=== PATIENT | female | born 1945 | race Caucasian/White ===

== ENCOUNTER → 2023-03-17 | Outpatient (CLI) | payer MEDICARE, OTHER, SELFPAY ==
--- NOTE | 2023-03-17 13:00 | TOBX_PTH ---
PATIENT: BABAK CAMERON LOC: [facility] U#:[id number] AGE/SX: 77/F ROOM: RE03/17/[address]: ELIE LOUIS MD : 1945 BED: DIS: 03/17/2023 SPEC #: [id number] RECD: 03/17/23 15:03 STATUS: ANABELLA REBhupendra #: [id number] MARIA: 03/17/23 13:[address]: ELIE LOUIS DEPT: SURGICAL PATHOLOGY RECD BY: Jacquie Delacruz ENTERED: 03/18/23 10:16 SP TYPE: TONGUE BX OTHR DR: Cyndie Primary Care Phys Tissues: Tongue, NOS Procedures: Special Stain Group I Surgery Specimen Level IV GMS Stain (control) HEADER OPERATION: Excisional biopsy of left lateral tongue lesion PRE-OP DIAGNOSIS: Left lateral tongue ?white? spot adjacent metal crown noted TISSUE SUBMITTED: Left lateral tongue MICROSCOPIC DIAGNOSIS Left lateral tongue lesion, biopsy: Mild chronic inflammation. Negative for fungal organisms. See comment. AM:lauren 03/22/2023 COMMENT GMS stain with matched control was used in the evaluation of this case. An epithelial neoplasm is not identified. Clinical correlation is suggested. MICROSCOPIC DESCRIPTION Slides are reviewed. GROSS DESCRIPTION Received in fixative is one container labeled with the patient's name and designated tongue. The specimen consists of two pieces of zhang mucosal tissue measuring 0.6 x 0.2 x 0.1 cm and 0.2 x 0.1 x 0.1 cm. The entire specimen is submitted in one cassette. / SJ:lauren 03/18/2023 TC:3 CPT: 45861, 72324
== END | disposition home or self-care (01) ==
PROVIDERS: Referring Provider Dentist Oral and Maxillofacial Surgery; Visit Provider Dentist Oral and Maxillofacial Surgery
DX: K14.9 Disease of tongue, unspecified (principal)
CPT/HCPCS: 88305; 88312

== ENCOUNTER → 2025-04-22 | Outpatient (CLI) | payer MEDICARE, OTHER, SELFPAY ==
--- NOTE | 2025-04-22 13:59 | VDLE_ITS ---
Reason For Study Reason For Study: BLE Pain RIGHT LEFT CFV is compressible, spontaneous, phasic, competent CFV is compressible, spontaneous, phasic, competent, and demonstrates normal augmentation. and demonstrates normal augmentation. FV is compressible, spontaneous, phasic, competent FV is compressible, spontaneous, phasic, competent and demonstrates normal augmentation. and demonstrates normal augmentation. POP V is compressible, spontaneous, phasic, competent POP V is compressible, spontaneous, phasic, competent and demonstrates normal augmentation. and demonstrates normal augmentation. T/P Trunk is compressible. T/P Trunk is compressible. PTV is compressible. PTV is compressible. RT PerV is compressible. LT PerV is compressible. SFJ is INCOMPETENT and measures 0.64 cm. SFJ is INCOMPETENT and measures 0.48 cm. GSV proximal thigh measures 0.52 x 0.44 cm. GSV proximal thigh measures 0.50 x 0.54 cm. GSV at knee measures 0.37 x 0.41 cm. GSV at knee measures 0.45 x 0.46 cm. GSV above knee is INCOMPETENT for greater than 0.5 GSV above knee is competent. seconds. GSV below knee is INCOMPETENT for greater than 0.5 GSV below knee is competent. seconds. SSV mid calf is competent and measures 0.19 x 0.19 SSV mid calf is competent and measures 0.34 x 0.32 cm. cm. Procedure ASV proximal calf is INCOMPETENT for greater than 0.5 Exam performed in department. seconds and measures 0.44 x 0.42 cm. This is a venous duplex using B-mode, color flow and spectral Doppler. The exam was diagnostic. VL/Venous Duplex US - Greg Extrem Interpretation Summary Deep veins of the lower extremities are bilaterally patent and compressible seg mentally. There is no evidence of deep vein thrombosis on either side. Valvular competence appears intact within the p roximal deep venous systems bilaterally. The great saphenous veins appear bilaterally patent and compressible segmentall y. Sapheno-femoral junctions are bilaterally incompetent . The right great saphenous vein appears incompetent ab ove the knee. The right great saphenous vein appears competent below the knee. The left great saphenous vein appears co mpetent above the knee. The left great saphenous vein appears incompetent below the knee. Small saphenous veins are pa tent and competent bilaterally. The accessory saphenous vein in the left proximal calf is incompetent. Ordering Physician: Boom Duffy Referring Physician: Jeane Zurita Performed By: Wade Moore RVT
== END | disposition home or self-care (01) ==
LOC: CVS 13:50
PROVIDERS: PCP Internal Medicine; Referring Provider Podiatrist Foot & Ankle Surgery; Visit Provider Podiatrist Foot & Ankle Surgery
DX: I73.89 Other specified peripheral vascular diseases (principal); M79.604 Pain in right leg; M79.605 Pain in left leg
CPT/HCPCS: 93970

== ENCOUNTER → 2025-05-07 | Outpatient (CLI) | payer MEDICARE, OTHER, SELFPAY ==
--- NOTE | 2025-05-07 13:49 | ART_ITS ---
Reason For Study Reason For Study: BILATERAL LEG PAIN Left Segmental Pressures Left brachial= 141mmHg. Left posterior tibial artery = 185mmHg. Left dorsalis pedis artery = 155mmHg. Left digit = 166 mmHg. The left posterior tibial artery waveforms are triphasic. The left dorsalis pedis waveforms are triphasic. Right Segmental Pressures Right brachial= 139mmHg. Right posterior tibial artery = 155mmHg. Right dorsalis pedis artery = 153mmHg. Right digit = 167 mmHg. The right posterior tibial artery waveforms are triphasic. The right dorsalis pedis waveforms are triphasic. Indices The right resting ankle brachial index is 1.10. The right ankle brachial index by the posterior tibial artery is 1.10. The right ankle brachial index by the dorsalis pedis is 1.09. The right digital- brachial index is 1.18. The left resting ankle brachial index is 1.31. The left ankle brachial index by the posterior tibial artery is 1.31. The left ankle brachial index by the dorsalis pedis is 1.10. The left digital-brachial index is 1.18. VL/Lower Ext Art Exam w/o Exercis Interpretation Summary Right OSCAR 1.1, normal. TBI and Doppler/PVR waveforms of the right leg normal at rest. Left OSCAR 1.31, normal. TBI and Doppler/PVR waveforms of the left leg normal at rest. Ordering Physician: Boom Duffy Referring Physician: Jeane Zurita Performed By: Jhoana Alarcon RVT, RDCS
== END | disposition home or self-care (01) ==
LOC: CVS 13:46
PROVIDERS: PCP Internal Medicine; Referring Provider Podiatrist Foot & Ankle Surgery; Visit Provider Podiatrist Foot & Ankle Surgery
DX: I73.89 Other specified peripheral vascular diseases (principal); M79.604 Pain in right leg; M79.605 Pain in left leg
CPT/HCPCS: 93923

== ENCOUNTER 2025-08-02 06:44 | Day surgery (SDC) | payer MEDICARE, OTHER, SELFPAY ==
--- NOTE | 2025-07-19 15:21 | PAT.ANE_ITS ---
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 When Was Last Pacemaker Check QUESTION #4 FULL TEXT: You/Your Family Experience fever (hyperthermia) with Anesthesia Last Oral Intake Last Oral intake: Last Oral Intake NPO since Meds taken in AM with sips of water? Meds patient instructed to take am of surgery PONV PONV - agriculture sales account manager: PONV - agriculture sales account manager Female Yes 07/19/25 09:07 HX of Motion Sickness No 07/19/25 09:07 HX of N/V After Surgery No 07/19/25 09:07 Non-Smoker Yes 07/19/25 09:07 Duration of Surgery greater Yes 07/19/25 09:07 than 60 minutes Number of Risk Factors 3 07/19/25 09:07 PONV Score Moderate Risk 07/19/25 09:07 Respiratory Assessment Respiratory Assessment - agriculture sales account manager: Respiratory Tract Infection Hx - agriculture sales account manager Hx Respiratory Tract Infection No 07/19/25 09:07 STOP Sleep Apnea STOP Sleep Apnea - agriculture sales account manager: STOP Sleep Apnea - agriculture sales account manager Hx Hypertension Yes 07/19/25 09:07 Hx Sleep Apnea Yes 07/19/25 09:07 CPAP Yes 07/19/25 09:07 BIPAP No 07/19/25 09:07 Do you snore loudly (louder than talking or can be heard Do you often feel tired/ fatigued/ sleepy during daytime? Has anyone observed you stop breathing during sleep? STOP Results Positive 07/19/25 09:07 QUESTION #5 FULL TEXT : Do you snore loudly (louder than talking or can be heard through closed doors)? 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 Specify any problems Hx of Preganancy in last 3 No 07/19/25 09:07 Months Nurse Filling Out Transfusion JZOLLINGE 07/19/25 09:07 & Questions: Date: 07/19/25 07/19/25 09:07 Time: 09:08 07/19/25 09:07 Patient unable to answer at this time (ie. confused, unrespo /Reproduction History /Reproductive History - agriculture sales account manager: /Reproductive Hx- agriculture sales account manager Hx Now No 07/19/25 09:07 Gestational Age (in weeks): EDC: Hx Hx Para Hx Section SAB No 07/19/25 09:07 [facility] Medical History (Updated 07/19/25 @ 09:26 by Zita Saha) History of echocardiogram Wears hearing aid Wears partial dentures Wears dentures Depression Insulin dependent diabetes mellitus Gout Arthritis Chronic kidney disease, stage 3 Bladder disease Injury of back Dietary restriction Gastric reflux Heartburn Non-smoker CPAP (continuous positive airway pressure) dependence Sleep apnea History of stress test Cardiology follow-up encounter Home Medications ?Medication ?Instructions ?Recorded ?Last Taken ?Type acetaminophen 325 mg tablet (Pain 650 mg PO Q6H Unknown History Relief (acetaminophen)) aspirin 81 mg capsule 81 mg PO DAILY 07/19/25 Unkn own History bupropion HCl 150 mg tablet,12 hr 150 mg PO DAILY 06/25 04/17 Unknown History sustained-release esomeprazole magnesium 40 mg 40 mg PO DAILY 07/19/25 U nknown History capsule,delayed release fluticasone propionate 50 2 spray intranasal DAILY Unknown History mcg/actuation nasal spray,suspension furosemide 40 mg tablet 40 mg PO .qd 07/19/25 Unknow n History hydrochlorothiazide 25 mg tablet 25 mg PO DAILY Unknown History insulin aspart U-100 100 unit/mL 15 - 20 unit subcut T ID 07/19/25 Unknown History (3 mL) subcutaneous pen (Novolog FlexPen U-100 Insulin aspart) mirabegron 50 mg tablet,extended 50 mg PO QHS 07/19/25 Unknown History release 24 hr (Myrbetriq) telmisartan 80 mg tablet 80 mg PO DAILY 07/19/25 Unkn own History Allergy/AdvReac Type Severity Reaction Status Date / Time ciprofloxacin AdvReac Mild Diarrhea Verified 07/19/25 14:44 metformin AdvReac Mild Diarrhea Verified 07/19/25 14:44 pioglitazone AdvReac Mild Diarrhea Verified 07/19/25 14:44 [id number] Reductase AdvReac Mild myalgia Verified 07/19/25 14:44 Inhibitor Surgical History (Updated 07/19/25 @ 09:26 by Zita Saha) History of coronary artery stent placement History of cardiac catheterization Hx of carpal tunnel repair Hx of colonoscopy Social History Smoking Status: Never smoker Audit: Pertinent Findings Pertinent Findings EKG Perinent findings: EKG normal sinus rhythm Stress test pertinent findings: Normal pharmacologic stress SPECT myocardial perfusion imaging study. Normal pharmacologic electrocardiographic portion of stress test. No chest discomfort. No evidence of ischemia by EKG criteria. Overall left ventricular systolic function was normal without regional wall motion abnormalities. Consult pertinent findings: Office visit 07/19/2025. Cardiac risk assessment based on the most recent clinical assessment does not exhibit active signs or objective evidence of acute coronary syndrome, decompensated heart failure, or significant arrhythmia severe valvular disease. Recommendation Anesthesia Recommendation Anesthesia recommendation: OPTIMIZED for anesthesia
[2025-08-02] VITALS (13 sets, daily range): BP systolic 118–149; BP diastolic 68–96; PULSE 84–93; RESP 16–18; TEMP 36.3–36.6; O2SAT 81–98; BMI 30.4
[2025-08-02] MEDS: Lactated Ringers 1,000 ML 15 ML IV (07:19)
--- NOTE | 2025-08-02 07:26 | OP.PCM_ITS ---
Operative Report (Standard) Operative Information Date of Procedure: 08/02/25 Pre-Operative Diagnosis: 1. Pain, right foot 2. Hallux valgus, right foot 3. Hammertoe, second digit, right foot 4. Primary osteoarthritis, right foot 5. Diabetes type 2 peripheral neuropathy Post-Operative Diagnosis: Same as preoperative diagnosis Surgery/Procedure Performed: Procedure #1: Bone marrow aspirate concentrate harvest, right foot Procedure #2: Amboy of calcaneal bone graft, right foot Procedure #3: First tarsometatarsal joint arthrodesis, right foot Procedure #4: First metatarsal phalangeal joint arthrodesis, right foot Procedure #5: Second digit proximal interphalangeal joint arthrodesis, second digit, right foot city library director: Yes Speech Therapy Director: BRITTANY Rosales Tasks completed by list of first job ideas: Closing, Implanting device and Retracting Additional clinical data assistant?: Yes Additional Clamshell Engineer #2: Amado Snyder Tasks completed by clinical data assistant #2: Closing Additional clinical data assistant?: No Type of Anesthesia: Block,Regional and Spinal RN Documented Start/Stop Times: Operation Date: 08/02/25 08:45 Case Time Into Pre-Op 08/02/25 06:50 Anesthesia Start 08/02/25 09:14 Into Room 08/02/25 09:14 Out of Pre-Op 08/02/25 09:14 Procedure Start 08/02/25 09:30 Procedure End 08/02/25 13:14 Anesthesia End 08/02/25 13:19 Out of Room 08/02/25 13:19 Into Recovery 08/02/25 13:22 Into Phase II Recovery 08/02/25 14:45 Out of Recovery 08/02/25 14:45 Out of Phase II 08/02/25 15:37 Procedure Start Time: 09:30 Procedure Stop Time: 13:14 Select all DRAINS/GRAFTS/IMPLANTS that apply: Implanted device Implanted device details: [employer], Lapiplasty, first metatarsophalangeal joint plate/speed plate Special Medications: Per anesthesia Estimated Blood Loss: 75 mL Fluids Replaced: For anesthesia Specimen collected: Yes Description of specimen(s) removed: Gout crystals from the first metatarsophalangeal joint space, right foot Description of surgery: Indications For Operation: Mrs. Fox is a 80-year-old diabetic female who was admitted to [facility] for right foot surgery due to hallux valgus deformity and pain to the right foot. Patient is a well-controlled diabetic and has been seen in my office for conservative treatment for the past 6 months. We have exhausted all conservative treatment consisting of sugar modification, nonsteroid anti-inflammatories, taping and offloading pads due to the persistence of pain especially to the medial eminence and hypermobility of the right foot hallux valgus deformity we discussed surgical intervention with double fusion of the first tarsometatarsal joint and first metatarsophalangeal joint arthrodesis to correct her severe bunion deformity. All risk and benefits were discussed with the patient great detail. Patient showed understanding to everything that was discussed with her. Chart review consent signed. Due to deformity of the right foot it was deemed necessary at this time to take the patient for the above procedure to help reduce her deformity and decrease her constant pain. The nature of the problem, anticipated procedures, postop recovery/convalences and risk/complications include but not limited to infection, wound healing complications, digital amputation, hypertrophic scarring, numbness, tingling, chronic pain, CRPS, over and under correction, recurrence of deformity, DVT and or PE and the need for further surgery have been discussed in great detail with the patient. All questions have been answered to the patient's satisfaction. There are no guarantees given as to the outcome of the procedure. Description of Procedure: Under mild sedation, the patient was brought into the operating room and placed on the operating table in supine position. Once the patient was under spinal anesthesia with monitored anesthesia care, the right lower extremity was blocked in PACU by anesthesia after the procedure via popliteal and adductor block. Please see anesthesia note for further detail. Next, a well-padded thigh tourniquet was applied to the right lower extremity. Next, the right lower extremity was prepped and draped in normal aseptic manner. Next, a timeout was then undertaken verifying the correct patient, extremity, visibility of preoperative markings, availability of the equipment. Procedure #1: Bone marrow aspirate concentrate harvest, right foot (CPT code: 93041) Next, attention was directed to the lateral aspect of the calcaneus. Using a Jamshidi needle and mallet the Jamshidi needle was advanced through the lateral wall of the calcaneus and 60 cc of bone marrow aspirate concentrate harvest was removed and passed the back table to be spun off to be used later in the case. Next, attention was directed to the right lower extremity. Using a 4 inch Esmarch, right lower extremity was exsanguinated and elevated to 60 degrees for 1 minute. Procedure #2: Amboy of calcaneal bone graft, right foot (CPT code: 80631) Next, attention was directed to the lateral aspect of the right calcaneus. Using a #15 blade, a full-thickness incision, approximately 1 cm, was made down to bone without incident. Continued blunt dissection was carried out with curved hemostats. Using the [employer] 7 mm bone graft harvester, calcaneal bone harvest less than than 5 cc was made, then removed from the calcaneus and passed the back table to be used later in the case, for the first tarsometatarsal joint and first metatarsophalangeal joint arthrodesis p rocedures. The incision was flushed with copious leonard of normal saline. The skin was reapproximated and closed using 3-0 nylon in simple interrupted suture technique. Procedure #3: First tarsometatarsal joint arthrodesis, right foot (CPT code: 49587) Next, attention was directed to the dorsal aspect of the right foot. Using fluoroscopy, the first tarsometatarsal joint was visualized. A longitudinal 3.5 cm incision with a #15 blade was made just medial to the extensor hallucis longus tendon. The incision was made down to the periosteum with care to retract the tendon laterally. The periosteum was reflected. The first tarsometatarsal joint was exposed and identified. Careful dissection was carried down to the level of the first tarsometatarsal joint as well as in the lateral space between the first and second metatarsal. The ligaments were then released at the tarsometatarsal joint with planing with sagittal saw and saw blade. After planing was performed, the plantar ligaments were released with the Tritome. Next, the all-in-one positioner was inserted, positioning the first metatarsal into corrected position. Positioning of the cuts were confirmed with large C-arm fluoroscopy. Cuts were then made with the all-in-one device using the sagittal saw and provided blade by [employer]. The compression/distractor was applied. The joint was distracted and the cuts along the base of the first metatarsal and first cuneiform removed. Continued joint prep followed after using a combination of osteotome and curette. The joint was flushed with copious leonard normal saline. Next, the joint was prepped using a fenestration with a 2- 0 drill bit along the first cuneiform and base of the first metatarsal. Next, the Amboy of calcaneal bone graft autograft was then packed in the first tarsometatarsal joint. At this point, the positioner was reapplied, compression/distractor was closed down and the fulcrum was then inserted on the lateral aspect of the base of the first metatarsal. Dorsiflexion of the hallux was then performed pushing the metatarsal and tarsometatarsal joint into place. Pinning with 2 smooth K wires in crossing fashion. Next, orthogonal plating was applied using (x2) 13 mm spleed plates by [employer]. Procedure #4: First metatarsal phalangeal joint arthrodesis, right foot (CPT code: 59380) Next, attention was directed to the dorsal aspect of the first metatarsal phalangeal joint, using a sterile skin marker the incision was marked at the level of the first metatarsal phalangeal joint distally and proximally. Using a #15 blade a full-thickness incision down to subcutaneous tissue was performed and continued blunt dissection carried down to the level of the tendon and bone. The tendon was retracted laterally using retractors and continue sharp dissection was carried down to the level of the first metatarsal phalangeal joint as well as exposing the joint in its entirety. At this time there showed evidence of approximately 90 to 95% of articular cartilage loss with osteophytic changes appreciated to the head of the first metatarsal as well as the base of the proximal phalanx. Next, the joint was released using a large McGlamery elevator. Next, using the 18 mm cup and cone reamers and guidewire the head of the first metatarsal and base of the proximal phalanx were prepped which showed evidence of good exposure of subchondral plate. Next, the first metatarsal phalangeal joint incision was flushed with copious normal saline. Next, fenestration was complete using the provided drill bit in the kit. Next, the autograft that was removed from the prior procedure and some DBM were placed in the first metatarsal phalangeal joint and the first metatarsal phalangeal joint was placed in a anatomical position with the hallux parallel to the second digit with the toenail facing up, with 10 degrees of dorsiflexion with 10 degrees of valgus rotation, and fixated in this position with a 1.6 mm fixation pin. Next, the speed plate jig was placed to the dorsal aspect of the first metatarsal phalangeal joint and secured in place with BB tacks. Largely arm fluoroscopy was used to confirm placement of the jig. Next interfrag screw was placed using the guide provided by the rep with the rep in the room using AO technique. Next, the drilling for the speed plate was done in all 4 sections manufactures guidelines and recommendation. Next, the jig was removed and the speed plate was placed on the dorsal aspect of the first metatarsal phalangeal joint. The 2 locking screws were then drilled along the plate proximally (18 mm locking screw) and distally (14 mm locking screw). Next the locking screws were placed as recommended per the front end engineer's recommendations. The remaining joint hardware was removed and the speed plate sat flush against the first metatarsophalangeal joint of the left lower extremity. Incision was flushed with couple rounds of normal saline. Procedure #5: Second digit proximal interphalangeal joint arthrodesis, second digit, right foot (CPT code: 17874?T6) Next, attention was directed to the dorsal aspect of the proximal interphalangeal joint of the right second digit. Using a sterile skin marker, a longitudinal incision was marked out at the level of the second metatarsal phalangeal joint and proximal interphalangeal joint of the right second digit. Using a #15 blade, a full-thickness incision down to subcutaneous tissue was made. Using sens retractors, the skin was lifted up and out and continued blunt dissection was carried down to the long extensor tendon. Once the extensor tend on was identified a plowing technique was performed on the medial and lateral aspects of the extensor tendon. A capsulotomy was performed at the proximal interphalangeal joint and the tendon was gently released to allow exposure of the proximal interphalangeal joint. The extensor tendon was removed but intact down to the level of the second metatarsal phalangeal joint. The capsule was identified and an additional capsulotomy was performed. Care was taken to identify the medial and lateral collateral ligaments of the proximal interphalangeal joint of the second digit which were released. Using a pickup and sagittal saw with a #114 blade, the head of the proximal phalanx was removed and passed the back table to be discarded. The base of the intermediate phalanx of the second digit was feathered to remove the articular cartilage to expose the subchondral bone. Using the wire racing driver provided by the [facility] medical surgical kit, packing machine pilot can router holes were placed in the base of the intermediate phalanx and head of the proximal phalanx per the manufactures technique with the rep in the room. The implant was inserted, 0 degree implant per the front end engineer's recommendation with the rep in the room. After securing the 2 bones together there showed excellent apposition across the proximal interphalangeal joint of the second digit. The medial and lateral collateral ligaments were re- constructed using Vicryl in simple interrupted suture technique. Extensor tendon was secured back to the proximal phalanx and physiological tension using 3-0 Vicryl and over and over suture technique. At this time the right thigh tourniquet was deflated and reperfusion was noted instantly to the right lower extremity. All bleeders were cauterized and ligated as necessary. All remaining incisions were flushed with copious normal saline. The deep layers were reapproximated closed using Vicryl3-0 Monocryl in running locking suture technique. The subcutaneous layers were reapproximated closed using 3-0 Vicryl and running suture technique. The digital incision over the second digit was reapproximated and closed with 3-0 nylon in simple interrupted suture technique. The first tarsometatarsal and first metatarsal phalangeal joint incisions were reapproximated closed using a 3-0 nylon in horizontal mattress suture technique and simple interrupted suture technique. Next, bone marrow aspirate concentrate was injected to all incisions at the level of the 2 arthrodesis site as well as the second digit hammertoe arthrodesis site without incident. The patient tolerated the procedure and anesthesia well and apparent satisfactory condition and was transported to the PACU for further monitoring prior to discharge home. Vital signs stable and vascular status intact to all digits bilateral. Post Operative Plan: Weightbearing: Patient will be partial to nonweightbearing to the right lower extremity with Cam boot with assistance of crutches and knee scooter. Full weightbearing left lower extremity. Antibiotics: Spinal anesthesia with monitored anesthesia care. DVT Prophylaxis: 81 mg aspirin Tan: None Dressing: Betadine soaked Adaptic, dry sterile dressing, double layer Lemon AO splint at 90 degrees to the right lower extremity. X-Rays: Post-operative films taken on the operating room. Pain Medication: Oxycodone 5 mg, Flexeril 10 mg, Tylenol 650 mg Follow-up: Patient will follow-up at her already scheduled postoperative appointment time. Surgical Findings: Good correction of hallux valgus deformity as well as good hammer toe correction Soft bone 2/2 history for gout tophi Complications Complications: No Admit VTE Documentation VTE Present on Admission: No VTE Mechan Device Prophylaxis: SCD's VTE Pharm Prophylaxis ordered?: Yes
--- NOTE | 2025-08-02 08:02 | PCM.PRE.AN2 ---
ASA Classification* ASA Classification ASA Classification: 3 Assessment & Plan Anesthesia* Anesthesia Assessment Anesthesia Assessment: Discussed sedation and/or anesthesia options, risks, benefits, and alternatives with patient/parents/legal guardian/POA. Questions invited. The patient/parents/legal guardian/POA seems to understand and agrees to proceed with anesthesia plan. Reviewed the physical assessment, medical history, allergy history and patient home medications list prior to surgery/procedure/anesthetic and documented any changes. Performed airway and anesthesia risk assessments. Anesthesia Type Anesthesia Type: Spinal and Block (Patient consented for popliteal block.) History Source History Obtained from:: Patient and Chart Anesthesia Focused Assessment* Temperature: 97.3 F Pulse Rate: 84 Blood Pressure: 139/73 Respiratory Rate: 16 Pulse Ox: 98 Oxygen Delivery Method: Room Air Airway Assessment Mouth opens: >3 cm Mallampati Score: III Teeth Condition: Dentures (Patient has full upper dentures.) and Partial (Patient has partial lower dentures.) Neck Range of motion (ROM): Limited ROM (Severe Restriction) Labs Anesthesia Preop lab: CBC CHEMISTRY POC Glucose, (74-106) 162 mg/dL H Today, 07:16 COAG Pre-Assessment Diagnosis/Proposed Procedure Planned Operative Procedure(s): (R) Corder of Calcaneal bone graft, Arthrodesis of the right first metatarsal phalangeal joint, Flexor digitorium longus transfer of t Anesthesia History 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 07/19/25 09:07 Cholinesterase deficiency No 07/19/25 09:07 You/Your Family Experience No 07/19/25 09:07 fever (hyperthermia) with Relationship Recent Exposure to Contagious No 08/02/25 07:15 Disease Does patient have nerve No 07/19/25 09:07 stimulator Patient instructed to have device shut off --Does patient have Pacemaker No 08/02/25 07:15 or ICD? When Was Last Pacemaker Check QUESTION #4 FULL TEXT: You/Your Family Experience fever (hyperthermia) with Anesthesia Last Oral Intake Last Oral intake: Last Oral Intake NPO since 22:00 08/02/25 07:15 Meds taken in AM with sips of Yes 08/02/25 07:15 water? 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 Female Yes 07/19/25 09:07 HX of Motion Sickness No 07/19/25 09:07 HX of N/V After Surgery No 07/19/25 09:07 Non-Smoker Yes 07/19/25 09:07 Duration of Surgery greater Yes 07/19/25 09:07 than 60 minutes Number of Risk Factors 3 07/19/25 09:07 PONV Score Moderate Risk 07/19/25 09:07 Height & Weight Height & Weight: Anesthesia: Height & Weight Height 5 ft 6 in 08/02/25 07:15 Weight: 85.6 kg 08/02/25 07:15 Body Mass Index (BMI) 30.4 08/02/25 07:15 Respiratory Assessment Respiratory Assessment - kids club attendant: Respiratory Tract Infection Hx - kids club attendant Hx Respiratory Tract Infection No 07/19/25 09:07 STOP Sleep Apnea STOP Sleep Apnea - kids club attendant: STOP Sleep Apnea - kids club attendant Hx Hypertension Yes 07/19/25 09:07 Hx Sleep Apnea Yes 07/19/25 09:07 CPAP Yes 07/19/25 09:07 BIPAP No 07/19/25 09:07 Do you snore loudly (louder than talking or can be heard Do you often feel tired/ fatigued/ sleepy during daytime? Has anyone observed you stop breathing during sleep? STOP Results Positive 07/19/25 09:07 QUESTION #5 FULL TEXT : Do you snore loudly (louder than talking or can be heard through closed doors)? 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 Specify any problems Hx of Preganancy in last 3 No 07/19/25 09:07 Months Nurse Filling Out Transfusion JZOLLINGE 07/19/25 09:07 & Questions: Date: 07/19/25 07/19/25 09:07 Time: 09:08 07/19/25 09:07 Patient unable to answer at this time (ie. confused, unrespo /Reproduction History /Reproductive History - kids club attendant: /Reproductive Hx- kids club attendant Hx Now No 07/19/25 09:07 Gestational Age (in weeks): EDC: Hx Hx Para Hx Section SAB No 07/19/25 09:07 Active Medications Active Medications: Current Medications Generic Name Dose Route Start Last Admin Trade Name Freq PRN Reason Stop Dose Admin Cefazolin Sodium 2 gm/ Sodium 110 mls @ 200 mls/hr 08/02/25 10:15 Chloride IV 08/02/25 10:47 INTRAOP ONE Lactated Ringer's 1,000 mls @ 15 mls/hr 08/02/25 07:00 08/02/25 07:19 IV 15 mls/hr .Q48H MARILYN Administration PFSH Medical History History of echocardiogram Wears hearing aid Wears partial dentures Wears dentures Depression Insulin dependent diabetes mellitus Gout Arthritis Chronic kidney disease, stage 3 Bladder disease Injury of back Dietary restriction Gastric reflux Heartburn Non-smoker CPAP (continuous positive airway pressure) dependence Sleep apnea History of stress test Cardiology follow-up encounter Home Medications ?Medication ?Instructions ?Recorded ?Last Taken ?Type acetaminophen 325 mg tablet (Pain 650 mg PO Q6H 07/19/25 Unknown History Relief (acetaminophen)) aspirin 81 mg capsule 81 mg PO DAILY 07/19/25 07/25/25 History bupropion HCl 150 mg tablet,12 hr 150 mg PO DAILY 07/19/25 Unknown History sustained-release esomeprazole magnesium 40 mg 40 mg PO DAILY 07/19/25 08/02/25 History capsule,delayed release fluticasone propionate 50 2 spray intranasal DAILY 07/19/25 08/02/25 History mcg/actuation nasal spray,suspension furosemide 40 mg tablet 40 mg PO .qd 07/19/25 Unknown History hydrochlorothiazide 25 mg tablet 25 mg PO DAILY 07/19/25 Unknown History insulin aspart U-100 100 unit/mL 15 - 20 unit subcut TID 07/19/25 Unknown History (3 mL) subcutaneous pen (Novolog FlexPen U-100 Insulin aspart) mirabegron 50 mg tablet,extended 50 mg PO QHS 07/19/25 Unknown History release 24 hr (Myrbetriq) telmisartan 80 mg tablet 80 mg PO DAILY 07/19/25 Unknown History colchicine 0.6 mg tablet 0.6 mg PO BID 08/02/25 Unknown History Allergy/AdvReac Type Severity Reaction Status Date / Time ciprofloxacin AdvReac Mild Diarrhea Verified 08/02/25 07:13 metformin AdvReac Mild Diarrhea Verified 08/02/25 07:13 pioglitazone AdvReac Mild Diarrhea Verified 08/02/25 07:13 Tiiulak-FST-XiK Reductase AdvReac Mild myalgia Verified 08/02/25 07:13 Inhibitor Surgical History (Updated 08/02/25 @ 08:[address] Johnson Felipe MD) S/P cervical spinal fusion Renal calculus, right History of coronary artery stent placement History of cardiac catheterization Hx of carpal tunnel repair Hx of colonoscopy Social History Smoking Status: Never smoker Review of Systems (Anesthesia) ROS Narrative System reviewed and no additional complaints, except as documented.
--- NOTE | 2025-08-02 08:45 | SOF_PTH ---
PATIENT: BABAK CAMERON LOC: [facility] [place] U#:[id number] AGE/SX: 80/F ROOM: RE08/02/[address]: Dr. Boom Duffy DPM : 1945 BED: DIS: 08/02/2025 SPEC #: [id number] RECD: 08/02/25 12:33 STATUS: ANABELLA REQ #: [id number] MARIA: 08/02/25 08:[address]: Boom Duffy DEPT: SURGICAL PATHOLOGY RECD BY: Hector Whyte ENTERED: 08/02/25 13:56 SP TYPE: SOFT TISS OTHR DR: Dr. Jeane Zurita MD Tissues: A - Right foot Procedures: Special Stain Group II Surgery Specimen Level IV Cytology Other HEADER OPERATION: Mullins of calcaneal bone graft, arthrodesis of right foot PRE-OP DIAGNOSIS: Pain, right foot, hallux valgus, right foot, hammertoe, second digit, right foot, primary osteoarthritis, right foot, diabetes type 2 peripheral neuropathy TISSUE SUBMITTED: A- Tophi - right foot *check for gout crystals* MICROSCOPIC DIAGNOSIS A. Right foot, tophi, biopsy: * Trabecular bone and cartilage with trilineage hematopoiesis and amorphous aggregates consistent with gouty tophus. * Touch prep is positive for uric acid crystals. MICROSCOPIC DESCRIPTION Slides are reviewed. GROSS DESCRIPTION A. Received fresh labeled the patient's name and date of . Designated as tophi-right foot (*to check for gout crystals) is a 2.6 x 2.0 x 0.4 cm aggregate of zhang-yellow fibrotic tissue fragments with white chalky deposits throughout. Touch preparations are made. Entirely submitted in 1 cassette. ID 08/02/2025 CPT:[id number]
[2025-08-02] MEDS: Cefazolin 1 GM/5 ML Vial 2 GM IV (09:16)
[2025-08-02] MEDS: Lidocaine 1% (5 ml sdv) 5 ML Vial IV (09:23)
--- NOTE | 2025-08-02 09:30 | RAD_ITS ---
EXAM: XR Right Foot, 2 Views CLINICAL INDICATION: HARVEST CALCANEAL BONE GRAFT, ARTHRODESIS OF FIRST METATARSAL TECHNIQUE: Frontal and lateral views of the right foot. COMPARISON: No relevant prior studies available. FINDINGS: A total 4 fluoroscopic images were obtained. Total fluoroscopy time 275.8 seconds. Total radiation dose 7.33 mGy. RAD/Foot 2 Views IMPRESSION: Fluoroscopic images were used intraoperatively. Please refer to the operative note for further details. Reading Location: [id number]
[2025-08-02] MEDS: Thrombin 5,000 IU Kit (PSA) 5,000 IU Vial 5000 IU TOPICAL (10:38)
[2025-08-02] MEDS: Lactated Ringers 500 ML IV (11:06)
[2025-08-02] MEDS: fentaNYL 100 MCG/2 ML Ampul IV (11:30)
--- NOTE | 2025-08-02 13:43 | PCM.POST.ANE ---
Anesthesia: Postop Eval I Current Vital Signs Temperature: 97.8 F Pulse Rate: 90 Blood Pressure: 129/71 Respiratory Rate: 16 Pulse Ox: 95 Oxygen Delivery Method: Room Air Assessment Airway patent: Yes Spontaneous unlabored respirations: Yes Mental status: Awake nausea: No Vomiting: No Anesthesia Complication: No Fluid Hydration Crystalloid volume administer (ml): 500 Total IV fluid infused: 500 Progress Note Post-operative progress note: Plans for postop pain blocks. Anesthesia document: Postop Eval 1 completed: Yes
--- NOTE | 2025-08-02 17:00 | PCM.POSTANE2 ---
Anesthesia Postop Eval I Sum Postop Eval Completion status Anesthesia document: Postop Eval 1 completed: Yes Anesthesia Postop Eval I Summary Anesthesia Postop Eval I Summary: Anesthesia Postop Eval I: Assessment Summary Airway patent Yes 08/02/25 16:58 Spontaneous unlabored Yes 08/02/25 16:58 respirations Mental status Awake 08/02/25 16:58 nausea No 08/02/25 16:58 Vomiting No 08/02/25 16:58 Anesthesia Postop Eval I: Fluid Summary Crystalloid volume administer 500 08/02/25 16:58 (ml) Colloids volume administered ( ml) Blood Product volume administered (ml) Total IV fluid infused 500 08/02/25 16:58 Anesthesia Postop Eval I: Summary Notes Anesthesia Complication No 08/02/25 16:58 Anesthesia Complication Comment: Post-operative progress note Plans for postop 08/02/25 16:59 pain blocks. Anesthesia: Postop Eval II Evaluation Mental status: Awake and Calm Pain Level: 1 nausea: No Vomiting: No Progress Note Post-operative progress note: After the postop pain block in PACU the patient did require some nasal cannula oxygen as she was very sleepy. This was eventually weaned off and she is now doing well on room air. Complications Anesthesia Complication: No
== END 2025-08-02 15:37 | disposition home or self-care (01) ==
LOC: SDC 06:45 → AC 06:46
PROVIDERS: PCP Internal Medicine; Referring Provider Podiatrist Foot & Ankle Surgery; Visit Provider Podiatrist Foot & Ankle Surgery
PROC: (CPT 28285; principal; 2025-08-02 08:30)
DX: M79.671 Pain in right foot (principal); E11.42 Type 2 diabetes mellitus with diabetic polyneuropathy; M10.471 Other secondary gout, right ankle and foot; M20.11 Hallux valgus (acquired), right foot; M19.071 Primary osteoarthritis, right ankle and foot; M20.41 Other hammer toe(s) (acquired), right foot; I25.10 Atherosclerotic heart disease of native coronary artery without angina pectoris; R09.82 Postnasal drip
CPT/HCPCS: 28285; 28740; 28750; 38206; 20900; 01480; 73620; 76000; 82962; 88161; 88305; 88313; J2405

== ENCOUNTER → 2025-10-09 | Outpatient (CLI) | payer MEDICARE, OTHER, SELFPAY ==
[2025-10-09 12:24] LABS: Hematocrit 36.8 % (37-47); Hemoglobin 12.0 g/dL (12.0-15.0); Mean Corp Hgb Conc 32.6 g/dL (32-36); Mean Corpuscular Volume 97.9 fL (81-99); Mean Platelet Vol. 10.4 fl (6.2-12.0); Platelet Count 240 K/mm3 (150-450); RBC Distribution Width CV 14.1 % (11.6-14.6); RBC Distribution Width SD 50.7 fl (35.1-43.9); Red Blood Count 3.76 M/mm3 (4.2-5.4); White Blood Count 4.8 K/mm3 (4.4-11.0)
[2025-10-09 12:53] LABS: Creatinine, Urine (random) 88.20 mg/dL (28.00-217.00); Microalbumin,Random Urine < 12.0 mg/L (<20 mg/L)
[2025-10-09 13:12] LABS: AST(SGOT) 48 U/L (<=31); Alanine Aminotransfer ALT/SGPT 17 U/L (<=34); Albumin, Serum 4.0 g/dL (3.4-4.8); Alkaline Phosphatase 80 U/L (35-104); Anion Gap 12 (5-15); BUN 25 mg/dL (4-19); BUN/Creat Ratio 29.3 RATIO (10-20); Calcium,Total 9.6 mg/dL (7.6-11.0); Carbon Dioxide 28.4 mmol/L (21.0-32.0); Chloride 102 mmol/L (98-108); Cholesterol 136 mg/dL (<=200); Globulin 2.6 g/dL (2.2-4.2); Glucose 69 mg/dL (70-99); Low Density Lipoprotein Calc. 65 mg/dL; Potassium 3.1 mmol/L (3.3-5.1); Triglycerides 100 mg/dL; Very Low Density Lipoprotein 20 mg/dL (5-40); Vitamin D,25 Hydroxy 61.8 ng/mL (30-100); cholesterol:hdl ratio screen 2.58
== END | disposition home or self-care (01) ==
LOC: MTLAB 10:06
PROVIDERS: PCP Family Medicine; Referring Provider Family Medicine; Visit Provider Family Medicine
DX: I10 Essential (primary) hypertension (principal); E11.9 Type 2 diabetes mellitus without complications; E55.9 Vitamin D deficiency, unspecified; I25.10 Atherosclerotic heart disease of native coronary artery without angina pectoris
CPT/HCPCS: 36415; 80053; 80061; 82043; 82306; 82570; 83036; 85027

== ENCOUNTER → 2025-10-22 | Outpatient (CLI) | payer MEDICARE, OTHER, SELFPAY ==
[2025-10-22 12:24] LABS: Potassium 3.0 mmol/L (3.5-5.1)
== END | disposition home or self-care (01) ==
LOC: MTLAB 10:44
PROVIDERS: PCP Family Medicine; Referring Provider Family Medicine; Visit Provider Family Medicine
DX: E87.6 Hypokalemia (principal)
CPT/HCPCS: 36415; 84132